=== PATIENT | female | born 1980 | race Caucasian/White ===

== ENCOUNTER 2018-07-15 07:10 | Day surgery (SDC) | payer OTHER ==
[2018-07-15] MEDS: NS 1,000 ML IV (07:00)
[2018-07-15] MEDS ORDERED: PROPOFOL 200 MG/20 ML VIAL As Ordered (07:37)
[2018-07-15] MEDS ORDERED: LIDOCAINE 2% INJ 100 MG/5 ML SDV (FOR ANES.) As Ordered (07:38)
[2018-07-15] MEDS ORDERED: fentaNYL 100 MCG/2 ML INJECTION (J3010) As Ordered (08:34)
== END 2018-07-15 09:45 | disposition home or self-care (01) ==
LOC: M OPP 07:10
DX: K22.8 Other specified diseases of esophagus (principal); K21.0 Gastro-esophageal reflux disease with esophagitis; K29.70 Gastritis, unspecified, without bleeding
CPT/HCPCS: 43239